=== PATIENT | male | born 1945 | race Caucasian/White ===

== ENCOUNTER 2016-12-16 16:14 | Observation (INO) | payer MEDICARE ==
[~2016-12-16] VITALS: Ht 185.4 cm; Wt 77.3 kg
[~2016-12-16 16:14] MED LIST: BETAPACE160 MG PO; DURAGESIC1 PATCH .1 TRANSDERM; HYDROCODON-ACE1 EAC7 PO; NEURONTIN 300300 MG PO; OMEPRAZOLE40 MG PO; UNKNOWN ANTIBIOTIC PO; XANAX1 MG PO; ZANAFLEX4 MG PO
[2016-12-16 16:51] LABS: BASOPHILS 0.2 % (0.0-2.0); EOSINOPHILS 0 % (0-7); HEMATOCRIT 45.8 % (42.0-54.0); HEMOGLOBIN 15.6 g/dL (13.5-17.5); IMMATURE GRANULOCYTES 0.2 % (0-5); LYMPHOCYTES 11.7 % (15-50); MCH 31.6 pg (26.0-34.0); MCHC 34.1 g/dL (31.0-37.0); MCV 92.9 fL (80.0-100.0); MONOCYTES 8.8 % (2-11); NEUTROPHILS 79.1 % (40-80); PLATELET COUNT 216 10x3/uL (130-400); RBC 4.93 10x6/uL (4.20-6.10); RDW 12.7 % (11.5-14.5); WBC 10.8 10x3/uL (4.8-10.8)
[2016-12-16 17:08] LABS: APTT 29.8 SECONDS (22.8-39.4); INR 1.26 (0.85-1.17); PROTIME 15.7 SECONDS (11.6-15.0)
[2016-12-16 17:26] LABS: ALBUMIN 4.7 g/dL (3.4-5.0); ANION GAP 30.1 mmol/L (8-16); BILIRUBIN - TOTAL 1.37 mg/dL (0.2-1.3); CALCIUM 9.9 mg/dL (8.5-10.1); CREATININE - SERUM 2.1 mg/dL (0.6-1.3); POTASSIUM - SERUM 4.1 mmol/L (3.5-5.1); PROTEIN - SERUM 8.1 g/dL (6.4-8.2)
[2016-12-16 20:43] LABS: UDS - AMPHET NEGATIVE QUAL (NEGATIVE); UDS - BARB NEGATIVE QUAL (NEGATIVE); UDS - BENZO POSITIVE QUAL (NEGATIVE); UDS - COCAINE NEGATIVE QUAL (NEGATIVE); UDS - METH NEGATIVE QUAL (NEGATIVE); UDS - OPIATE POSITIVE QUAL (NEGATIVE); UDS - PCP NEGATIVE QUAL (NEGATIVE); UDS - THC NEGATIVE QUAL (NEGATIVE)
[2016-12-16 21:58] LABS: APPEARANCE CLEAR (CLEAR); BILIRUBIN NEGATIVE (NEGATIVE); COLOR DK YELLOW (YELLOW); GLUCOSE NEGATIVE (NEGATIVE); KETONE MODERATE mg/dL (NEGATIVE); LEUKOCYTE ESTERASE NEGATIVE (NEGATIVE); NITRITE NEGATIVE (NEGATIVE); PROTEIN NEGATIVE (NEGATIVE); SPECIFIC GRAVITY 1.025 (1.005-1.020); UROBILINOGEN NORMAL (NORMAL)
--- NOTE | 2016-12-17 03:00 | NUR ---
REC'D PATIENT FROM ER STAFF. PATIENT IS ALERT AND ORIENTED X3. IS CONFUSED ON WHAT BROUGHT HIM HERE. DIAGNOSED WITH ALTERED MENTAL STATUS. HAD AN EPISODE OF SVTS DOWN IN THE ER AND ER NURSE SYED STATED THAT SHE GAVE HIM ADENOSINE. PATIENT HAS A TELMETRY MONITOR ON RIGHT NOW THAT WAS ORDERED. HAS A BED ALARM ON BED. HAS A HEMATOMA TO RIGHT PERIORBITAL, AND ABRASIONS ON HIS RIGHT HAND, KNEE AND SHOULDER. PATIENT ALSO HAS A PACEMAKER. DENIED NEEDS AT THIS TIME. INSTRUCTED ON HOW TO USE AND WHEN TO USE THE CALL LIGHT. PATIENT VERBALIZED UNDERSTANDING. BED LOW, LOCKED, CALL LIGHT IN REACH, BED ALARM ON.
[2016-12-17 05:05] VITALS: BP 125/75; Ht 185.4 cm; Wt 77.3 kg
--- NOTE | 2016-12-17 05:26 | NUR ---
ASSESSMENT PER ADMIT PACKET. PT REMAINS CONFUSED SPEECH RAMBLES. KENYA BED ALARM MAT ON. YELLOW BAND ON PT CLIMBS OUT OF BED FREQUENTLY.COMES OUT INTO HALLWAY LOOKING FOR BATHROOM. LOOKING FOR BATHROOM. ESCORTED TO BATHROOM.
--- NOTE | 2016-12-17 07:15 | NUR ---
REPORT RECEIVED FROM INTERLOCKING PAVEMENT INSTALLER NURSE. CALL LIGHT IN REACH.
[2016-12-17 08:41] VITALS: BP 136/89
--- NOTE | 2016-12-17 09:10 | NUR ---
ASSESSMENT COMPLETED. OFFERED SCDs BUT REFUSED. CALL LIGHT IN REACH. WILL CONTINUE WITH PLAN OF CARE.
--- NOTE | 2016-12-17 11:22 | NUR ---
BENJA SAWYER. US BEING DONE AT THIS TIME. CALL LIGHT IN REACH.
--- NOTE | 2016-12-17 12:05 | NUR ---
NO NEEDS VOICED AT THIS TIME. CALL LIGHT IN REACH. KENYA MAT ALARM ON.
[2016-12-17 12:57] VITALS: BP 145/93
--- NOTE | 2016-12-17 14:20 | NUR ---
HAS BEEN DISASSEMBLING KENYA MAT AND GETTING UP GOING IN OTHER PATIENTS' ROOMS MESSING WITH THEIR IV PUMPS. ASSISTED PATIENT BACK TO BED AND REORIENTED HIM.
[2016-12-17 15:27] LABS: ERYTHROCYTE SEDIMENTATION RATE 1 mm/hr (0-20)
--- NOTE | 2016-12-17 16:58 | NUR ---
18 GA TO LEFT AC WAS OUT WITH TIP INTACT. RESITED TO LEFT HAND WITH 22 GA X1 STICK. NS INITIATED @ 125 CC/HR. CALL LIGHT IN REACH.
--- NOTE | 2016-12-17 17:02 | NUR ---
Discharge Planning Comments: CM MET WITH PATIENT TO DISCUSS DISCHARGE PLANNING AND NEEDS. CM FOUND PATIENT WITH EAR PRESSED AGAINST INTERCOM ON WALL IN PATIENT'S ROOM. THE PATIENT STATED HE "WAS TALKING TO HIS SISTER IN [place]". PATIENT DISORIENTED TO PLACE AND PERSON. currently AWAITING PSYCH EVAL FROM [facility]. CM TO FOLLOW AND ASSIST NEEDED. Apricot Packer: Deb Quiroga
[2016-12-17 17:10] VITALS: BP 114/65
--- NOTE | 2016-12-17 17:25 | NUR ---
URINAL GIVEN TO PATIENT AND EXPLAINED TO HIM THE NEED FOR A URINE SAMPLE. VERBALIZED UNDERSTANDING.
--- NOTE | 2016-12-17 18:00 | NUR ---
PATIENT IS IN BED. SITTING UP IN BED. RESPIRATIONS ARE EVEN AND UNLABORED ON ROOM AIR. PATIENT IS EATING A SALAD. PATIENT DENIES NEEDS. BED ALARM ON. BED IN LOWEST POSITION, CALL LIGHT IN REACH.
--- NOTE | 2016-12-17 19:00 | NUR ---
NO CHANGES IN INIITIAL ASSESSMENT. CALL LIGHT IN REACH. WILL CONTINUE WITH PLAN OF CARE.
[2016-12-17 20:00] VITALS: BP 144/80
--- NOTE | 2016-12-17 20:00 | NUR ---
ASSESSMENT PER FLOWSHEET. CONFUSED TO SITUATION AND PLACE. IV PATENT LEFT HAND OF NS AT 125CC'S/HR SITE CLEAR. KENYA BED ALARM MAT ON BED AND ACTIVATED. ALARMS FREQUENTLY PT GETS OUT OF BED AND WANDERS INTO HALLWAY ESCORTED BACK TO ROOM AND TO BATHROOM.
--- NOTE | 2016-12-17 21:00 | NUR ---
MEDS GIVEN PER NOV. RESTING IN BED SR UP X2 CALL LIGHT WITHIN REACH.
--- NOTE | 2016-12-17 23:27 | NUR ---
IN BED EYES CLOSED RESPIRATIONS WITH EASE AND UNLABORED.
[2016-12-18] VITALS: BP 148/77
--- NOTE | 2016-12-18 01:00 | NUR ---
EYES CLOSED RESPIRAIONS WITH EASE AND UNLABORED.
--- NOTE | 2016-12-18 02:56 | NUR ---
RESTING QUIETLY DENIES NEEDS NO VOICED C/O
[2016-12-18 04:00] VITALS: BP 138/68
--- NOTE | 2016-12-18 05:46 | NUR ---
RESTING QUIETLY NO CHANGES IN ASSESSMENT.
--- NOTE | 2016-12-18 07:30 | NUR ---
REPORT RECEIVED FROM EYELET RIVETER NURSE. CALL LIGHT IN REACH.
[2016-12-18 09:09] VITALS: BP 156/100
--- NOTE | 2016-12-18 09:20 | NUR ---
ASSESSMENT COMPLETED. REFUSES SCDs. KENYA MAT ALARM ON. CALL LIGHT IN REACH. WILL CONTINUE WITH PLAN OF CARE.
--- NOTE | 2016-12-18 10:42 | NUR ---
PATIENT IN RIGHT LATERAL POSITION RESTING QUIETLY. RESPIRATIONS EVEN AND UNLABORED. SIDE RAILS UP X2. BED IN LOW POSITION. CALL LIGHT IN REACH.
--- NOTE | 2016-12-18 10:45 | NUR ---
DR. IBARRA HAS REVIEWED THIS PATIENT'S CHART AND HE DOES APPROVE FOR PT TO BE ADMITTED TO [facility] FOR FURTHER TREATMENT ONCE MEDICALLY STABLE.
--- NOTE | 2016-12-18 11:16 | NUR ---
BETAPACE PO. REQUESTING OXYCODONE BUT REFUSES TYLENOL. ONLY WANTS A NARCOTIC.
[2016-12-18 11:30] LABS: BASOPHILS 0.3 % (0.0-2.0); EOSINOPHILS 0.7 % (0-7); HEMATOCRIT 40.9 % (42.0-54.0); HEMOGLOBIN 13.7 g/dL (13.5-17.5); IMMATURE GRANULOCYTES 0.1 % (0-5); LYMPHOCYTES 16.3 % (15-50); MCH 31.5 pg (26.0-34.0); MCHC 33.5 g/dL (31.0-37.0); MEAN PLATELET VOLUME 9.9 fL (7.4-10.4); MONOCYTES 11.5 % (2-11); NEUTROPHILS 71.1 % (40-80); RBC 4.35 10x6/uL (4.20-6.10); RDW 12.6 % (11.5-14.5)
[2016-12-18 11:36] LABS: PLATELET COUNT 147 10x3/uL (130-400)
[2016-12-18 11:37] LABS: ALKALINE PHOSPHATASE 65 U/L (46-116); ALT (SGPT) 29 U/L (10-68); BILIRUBIN - TOTAL 0.95 mg/dL (0.2-1.3); CALCIUM 8.3 mg/dL (8.5-10.1); CHLORIDE - SERUM 109 mmol/L (98-107); GLUCOSE 129 mg/dL (74-106); PROTEIN - SERUM 6.4 g/dL (6.4-8.2); SODIUM 146 mmol/L (136-145)
[2016-12-18 11:40] LABS: ALBUMIN 3.3 g/dL (3.4-5.0); CALC OSMOLALITY 294 mosm/kg (275-300); CARBON DIOXIDE 29.8 mmol/L (21.0-32.0); POTASSIUM - SERUM 3.4 mmol/L (3.5-5.1); UREA NITROGEN 17 mg/dL (7-18); eGFR NON AFRICAN AMERICAN 78 mL/min (90-120)
[2016-12-18 13:06] VITALS: BP 141/87
--- NOTE | 2016-12-18 13:53 | NUR ---
IV OUT WITH TIP INTACT.
--- NOTE | 2016-12-18 15:20 | NUR ---
RESTING WITH EYES CLOSED. RESP EVEN AND UNLABORED. CALL LIGHT IN REACH.
[2016-12-18 16:32] VITALS: BP 151/101
--- NOTE | 2016-12-18 17:58 | NUR ---
SITTING UP IN BED EATING DINNER. NO NEEDS VOICED AT THIS TIME. CALL LIGHT IN REACH.
[2016-12-18 18:09] LABS: SPE - A/G RATIO 1.2 (0.7-1.7); SPE - ALBUMIN 3.9 g/dL (2.9-4.4); SPE - ALPHA-1 GLOBULIN 0.2 g/dL (0.0-0.4); SPE - ALPHA-2 GLOBULIN 0.7 g/dL (0.4-1.0); SPE - BETA GLOBULIN 0.9 g/dL (0.7-1.3); SPE - GAMMA GLOBULIN 1.5 g/dL (0.4-1.8); SPE - M-SPIKE Not Observed g/dL (Not Observed); SPE - TOTAL PROTEIN 7.2 g/dL (6.0-8.5)
--- NOTE | 2016-12-24 14:38 | EC ---
PATIENT:LANEY SCHMITT DATE OF SERVICE: 12/16/16 SEX: M MEDICAL RECORD: [id number] DATE OF : 41 LOCATION:[facility] AGE OF PATIENT: 71 ADMISSION DATE: 12/18/16 REFERRING PHYSICIAN: INTERPRETING PHYSICIAN: LEESA ARNETT MD ECHOCARDIOGRAM REPORT ECHO CHARGES 4 ECHO COMPLETE CLINICAL DIAGNOSIS: SVT ECHOCARDIOGRAPHIC MEASUREMENTS (adult normal given) AC root (d.<3.7cm) 3.9 LV Septum d (<1.2 cm> 1.4 Valve Excursion 1.9 LV Septum (systole) 1.5 Left Atria (s.<4.0cm> 3.8 LVPW d(<1.2cm) 1.5 RV (d.<2.3cm) 2.9 LVPW (sytole) 1.6 LV diastole(<5.6CM) 4.4 MV E-F(>70mm/sec) LV systole 2.7 LVOT Diameter 2.0 MV exc.(>10mm) 1.8 Est.ejection fraction (50-75%) Pericardial Effusion N DOPPLER: LVIT A 72.0 E 90.0 LA RVSP 35 LVOT 98 AOP1/2T Asc. Ao 110 RVOT RA PA AV Gradient Peak 4.86 AV Mean 2.20 AV Area 2.4 MV Gradient Peak 4.16 MV Mean 1.61 MV Area COMMENTS: Electro Mechanical Designer: Jered MANTILLA Grocery Clerk:Chaitanya Arnett TAPE# PACS DATE OF SERVICE: 12/17/2016 Echocardiogram FINDINGS: 1. Left ventricular chamber size is within normal limits. Left ventricular systolic function is normal. Overall ejection fraction estimated at 60%. 2. Left atrium, right atrium and right ventricular chamber sizes are within normal limits. 3. Valvular structures have normal structure and motion. ECHOCARDIOGRAM REPORT [id number] LANEY SCHMITT 4. Doppler interrogation reveals mild mitral regurgitation, mild tricuspid regurgitation, no other valvular insufficiency or stenosis and pulmonary systolic pressure is normal estimated at 35 mmHg. 5. No evidence of pericardial effusion or left ventricular thrombus. TRANSINT:[id number] Voice Confirmation ID: [id number] DOCUMENT ID: [id number] LEESA ARNETT MD at 4951 CC: [id number] DICTATION DATE: 12/17/[address] OF APPEALS JUDGE: 12/17/16 1438 DIS IN 12/18/[address] [place] [id number] [facility] JA[facility] [place], [facility]
== END 2016-12-18 22:12 | disposition short-term general hospital (02) ==
LOC: D.ER 16:14 → D.MS 23:44 → D.SDCHOLD 12-17 13:34 → D.PSYCH 12-18 20:34 → D.MS 12-18 20:34 → OBSVTIME 12-18 22:07 → D.MS 12-18 22:07
PROVIDERS: Emergency Medicine; Internal Medicine Hematology; Internal Medicine Nephrology; Physician Assistant Medical; ADMIT Legal Medicine
DX: N17.9 Acute kidney failure, unspecified (principal); I47.1 Supraventricular tachycardia; R55 Syncope and collapse; I48.91 Unspecified atrial fibrillation; R41.82 Altered mental status, unspecified; Z95.0 Presence of cardiac pacemaker; F32.9 Major depressive disorder, single episode, unspecified

== ENCOUNTER 2016-12-18 20:49 | Inpatient (IN) | payer MEDICARE ==
--- NOTE | 2016-12-19 00:39 | NUR ---
Recieved patient from Med II via wheelchair, alert and oriented X 3, patient had been living alone at home, confused and throwing belonging into the parking lot, up with assist, patient has pacemaker, medications entered labs ordered, physician called, full code, will continue to monitor.
[2016-12-19 05:25] VITALS: BP 142/99; Wt 77.3 kg
[2016-12-19 06:45] LABS: BASOPHILS 0.1 % (0.0-2.0); EOSINOPHILS 1.3 % (0-7); HEMATOCRIT 40.8 % (42.0-54.0); HEMOGLOBIN 13.6 g/dL (13.5-17.5); IMMATURE GRANULOCYTES 0.1 % (0-5); LYMPHOCYTES 28.7 % (15-50); MCH 31.1 pg (26.0-34.0); MCHC 33.3 g/dL (31.0-37.0); MCV 93.4 fL (80.0-100.0); MONOCYTES 11.6 % (2-11); NEUTROPHILS 58.2 % (40-80); PLATELET COUNT 133 10x3/uL (130-400); RBC 4.37 10x6/uL (4.20-6.10); RDW 12.4 % (11.5-14.5)
[2016-12-19 06:55] LABS: HEMOGLOBIN A1C 5.5 % (4.8-6.0)
[2016-12-19 07:17] LABS: ALKALINE PHOSPHATASE 67 U/L (46-116); ALT (SGPT) 28 U/L (10-68); CALC OSMOLALITY 283 mosm/kg (275-300); CALCIUM 8.4 mg/dL (8.5-10.1); CARBON DIOXIDE 29.5 mmol/L (21.0-32.0); CHLORIDE - SERUM 106 mmol/L (98-107); CHOL - HDL RATIO 3.8 ratio (2.3-4.9); CHOLESTEROL, TOTAL 130 mg/dL (0-200); CREATININE - SERUM 0.9 mg/dL (0.6-1.3); GLUCOSE 97 mg/dL (74-106); HDL CHOLESTEROL 34 mg/dL (32-96); LDL CHOLESTEROL 85 mg/dL (0-100); LDL-HDL RATIO 2.5 ratio (1.5-3.5); POTASSIUM - SERUM 3.1 mmol/L (3.5-5.1); PROTEIN - SERUM 5.9 g/dL (6.4-8.2); SODIUM 142 mmol/L (136-145); THYROID STIMULATING HORMONE 1.48 uIU/mL (0.36-3.74); TRIGLYCERIDE 58 mg/dL (30-200); UREA NITROGEN 16 mg/dL (7-18); eGFR NON AFRICAN AMERICAN 88 mL/min (90-120)
[2016-12-19 08:30] VITALS: BP 149/102
--- NOTE | 2016-12-19 11:27 | NUR ---
Pt sitting in recliner speaking with Dr. Marmolejo. Pt quiet, cooperative with staff, however staff reports pt grabbing food from other patients tray at breakfast. Dr. Soliman also visited with patient this am. Medication given as ordered. Reorientation, redirection given as needed. Pt redirects well. Will continue to monitor and continue plan of care.
[2016-12-19 20:00] VITALS: BP 149/97
[2016-12-19 20:27] VITALS: BP 149/97
--- NOTE | 2016-12-20 03:57 | NUR ---
B) Recieved patient sitting in the day room listening to music, alert and oriented X 3, calm and cooperative, social with other patients, intrusive at times, I) Administered perscribed medications, redirected as needed, R) Medication compliant, resting now quietly, P) Continue plan of care.
[2016-12-20 05:16] LABS: RAPID PLASMA REAGIN Non Reactive (Non Reactive)
[2016-12-20 06:09] LABS: CALCIUM 8.4 mg/dL (8.5-10.1); CARBON DIOXIDE 30.9 mmol/L (21.0-32.0); CHLORIDE - SERUM 105 mmol/L (98-107); GLUCOSE 103 mg/dL (74-106); SODIUM 141 mmol/L (136-145); eGFR NON AFRICAN AMERICAN 78 mL/min (90-120)
[2016-12-20 06:10] LABS: CALC OSMOLALITY 283 mosm/kg (275-300); POTASSIUM - SERUM 3.8 mmol/L (3.5-5.1); UREA NITROGEN 22 mg/dL (7-18)
[2016-12-20 06:15] LABS: VITAMIN D 25 HYDROXY 24.1 ng/mL (30.0-100.0)
[2016-12-20 07:23] LABS: FOLATE (FOLIC ACID) - SERUM 14.2 ng/mL (>3.0)
[2016-12-20 09:40] VITALS: BP 134/98
--- NOTE | 2016-12-20 10:00 | NUR ---
B) PATIENT IS AWAKE AND ALERT, HE DOES HAVE A BIZARRE PERSONA, HE DENIES DEPRESSION, BUT AT TIMES HAS A FLAT TO BLUNTED AFFECT AND THEN AT OTHER TIMES HE IS REACTIVE. PATIENT AMBULATES INDEPENDENTLY. I) PROVIDE PRESCRIBED MEDS. R) PATIENT IS COMPLIANT WITH MEDS. P) CONTINUE PLAN OF CARE.
[2016-12-20] MEDS ORDERED: LEXAPRO10 MG PO (12:30)
[2016-12-20] MEDS ORDERED: DESERYL100 MG PO (12:31)
[2016-12-20] MEDS ORDERED: ATIVAN1 MG PO (12:31)
--- NOTE | 2016-12-20 13:30 | NUR ---
DR. IBARRA D/Unique'D PATIENT, CALLED ER TO GET TAXI VOUCHER SO PATIENT MAY RECEIVE A RIDE HOME.
--- NOTE | 2016-12-20 13:51 | NUR ---
SW SET UP REFERRAL TO [facility] FOR OUTPATIENT THERAPY.
--- NOTE | 2016-12-20 14:03 | NUR ---
PATIENT D/C'D FROM [facility] MEDS CALLED TO [facility], ORDERS AND MEDS FAXED TO DR. RAHMAN. PROVIDED PATIENT A COPY OF ALL MEDICATIONS HE WAS RECEIVING HERE, EXPLAINED TO HIM THAT HE HAS BEEN REFERRED TO [facility], WENT OVER MEDICATIONS WITH HIM AND TOLD HIM ALL ORDERS AND MEDICATION LIST WAS FAXED TO DR. RAHMAN. PATIENT SIGNED D/C PAPERS, ALL BELONGINGS ACCOUNTED FOR THAT HE CAME TO THIS UNIT CARRYING.
--- NOTE | 2016-12-20 14:10 | NUR ---
PATIENT D/C'D OFF THE UNIT WITH CHILDREN TEACHER. TAXI VOUCHER IN HAND.
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
== END 2016-12-20 14:14 | disposition home or self-care (01) | DRG 885 ==
LOC: D.PSYCH 20:49
PROVIDERS: Family Medicine; ADMIT Psychiatry & Neurology Psychiatry
DX: F33.9 Major depressive disorder, recurrent, unspecified (principal); F60.1 Schizoid personality disorder; G89.4 Chronic pain syndrome; E87.6 Hypokalemia; K59.00 Constipation, unspecified; I48.91 Unspecified atrial fibrillation; K27.9 Peptic ulcer, site unspecified, unspecified as acute or chronic, without hemorrhage or perforation; I10 Essential (primary) hypertension; G47.00 Insomnia, unspecified; Z95.0 Presence of cardiac pacemaker; H26.9 Unspecified cataract

== ENCOUNTER 2016-12-24 16:28 | Emergency (ER) | payer MEDICARE ==
[2016-12-19 05:25] VITALS: BMI 22.4
[~2016-12-24 16:28] MED LIST changes: +ATIVAN1 MG PO; +DESERYL100 MG PO; +LEXAPRO10 MG PO
[2016-12-24 18:02] LABS: BASOPHILS 0.3 % (0.0-2.0); EOSINOPHILS 1.6 % (0-7); HEMOGLOBIN 13.9 g/dL (13.5-17.5); IMMATURE GRANULOCYTES 0.1 % (0-5); MCH 31.4 pg (26.0-34.0); MCHC 33.1 g/dL (31.0-37.0); MCV 94.8 fL (80.0-100.0); MEAN PLATELET VOLUME 9.4 fL (7.4-10.4); MONOCYTES 11.9 % (2-11); NEUTROPHILS 67.1 % (40-80); RBC 4.43 10x6/uL (4.20-6.10); RDW 12.4 % (11.5-14.5); WBC 7.4 10x3/uL (4.8-10.8)
[2016-12-24 18:04] LABS: PLATELET COUNT 164 10x3/uL (130-400)
[2016-12-24 18:22] LABS: ALBUMIN 3.6 g/dL (3.4-5.0); ALKALINE PHOSPHATASE 72 U/L (46-116); ALT (SGPT) 34 U/L (10-68); BILIRUBIN - TOTAL 0.57 mg/dL (0.2-1.3); CALC OSMOLALITY 280 mosm/kg (275-300); CALCIUM 8.9 mg/dL (8.5-10.1); CARBON DIOXIDE 32.8 mmol/L (21.0-32.0); CHLORIDE - SERUM 104 mmol/L (98-107); GLUCOSE 93 mg/dL (74-106); POTASSIUM - SERUM 4.4 mmol/L (3.5-5.1); PROTEIN - SERUM 7.2 g/dL (6.4-8.2); SODIUM 140 mmol/L (136-145); UREA NITROGEN 18 mg/dL (7-18); eGFR NON AFRICAN AMERICAN 78 mL/min (90-120)
[2016-12-24 20:15] LABS: UDS - AMPHET NEGATIVE QUAL (NEGATIVE); UDS - BARB NEGATIVE QUAL (NEGATIVE); UDS - BENZO POSITIVE QUAL (NEGATIVE); UDS - COCAINE NEGATIVE QUAL (NEGATIVE); UDS - METH NEGATIVE QUAL (NEGATIVE); UDS - OPIATE NEGATIVE QUAL (NEGATIVE); UDS - PCP NEGATIVE QUAL (NEGATIVE); UDS - THC NEGATIVE QUAL (NEGATIVE)
[2016-12-25 00:20] LABS: APPEARANCE CLEAR (CLEAR); BILIRUBIN NEGATIVE (NEGATIVE); COLOR YELLOW (YELLOW); GLUCOSE NEGATIVE (NEGATIVE); KETONE NEGATIVE (NEGATIVE); LEUKOCYTE ESTERASE NEGATIVE (NEGATIVE); NITRITE NEGATIVE (NEGATIVE); PROTEIN NEGATIVE (NEGATIVE); SPECIFIC GRAVITY 1.005 (1.005-1.020); UROBILINOGEN NORMAL (NORMAL)
== END 2016-12-25 01:23 | disposition home or self-care (01) ==
LOC: D.ER 16:28
PROVIDERS: Emergency Medicine; Nurse Practitioner Family
DX: M54.9 Dorsalgia, unspecified (principal); F32.9 Major depressive disorder, single episode, unspecified; K21.9 Gastro-esophageal reflux disease without esophagitis; Z95.0 Presence of cardiac pacemaker

== ENCOUNTER 2017-01-09 04:05 | Emergency (ER) | payer MEDICARE, MEDICAID ==
[2016-12-19 05:25] VITALS: BMI 22.4
[2017-01-09 04:59] LABS: BASOPHILS 0.4 % (0.0-2.0); EOSINOPHILS 1.5 % (0-7); HEMATOCRIT 40.7 % (42.0-54.0); HEMOGLOBIN 13.5 g/dL (13.5-17.5); IMMATURE GRANULOCYTES 0.2 % (0-5); MCH 31.5 pg (26.0-34.0); MCHC 33.2 g/dL (31.0-37.0); MCV 94.9 fL (80.0-100.0); MEAN PLATELET VOLUME 9.1 fL (7.4-10.4); MONOCYTES 12.6 % (2-11); NEUTROPHILS 55.3 % (40-80); PLATELET COUNT 168 10x3/uL (130-400); RBC 4.29 10x6/uL (4.20-6.10); RDW 12.9 % (11.5-14.5); WBC 5.2 10x3/uL (4.8-10.8)
[2017-01-09 05:08] LABS: ALBUMIN 3.1 g/dL (3.4-5.0); ALKALINE PHOSPHATASE 101 U/L (46-116); ALT (SGPT) 38 U/L (10-68); BILIRUBIN - TOTAL 0.37 mg/dL (0.2-1.3); CALC OSMOLALITY 283 mosm/kg (275-300); CALCIUM 8.3 mg/dL (8.5-10.1); CARBON DIOXIDE 28.2 mmol/L (21.0-32.0); CHLORIDE - SERUM 106 mmol/L (98-107); GLUCOSE 95 mg/dL (74-106); POTASSIUM - SERUM 3.7 mmol/L (3.5-5.1); PROTEIN - SERUM 6.6 g/dL (6.4-8.2); SODIUM 142 mmol/L (136-145); UREA NITROGEN 15 mg/dL (7-18); eGFR NON AFRICAN AMERICAN 78 mL/min (90-120)
[2017-01-09 05:18] LABS: PRO BNP 1425 pg/mL (0-125); THYROID STIMULATING HORMONE 3.25 uIU/mL (0.36-3.74); TROPONIN-I 0.018 ng/mL (0.000-0.060)
== END 2017-01-09 06:55 | disposition home or self-care (01) ==
LOC: D.ER 04:05
PROVIDERS: Family Medicine
DX: I48.2 Chronic atrial fibrillation (principal); Z95.0 Presence of cardiac pacemaker

== ENCOUNTER 2019-10-27 12:02 | Emergency (ER) | payer OTHER ==
[~2019-10-27] VITALS: Ht 182.9 cm; Wt 90.9 kg
[2019-10-27 12:08] VITALS: BP 149/86; Ht 182.9 cm; Wt 90.9 kg
== END 2019-10-27 14:40 | disposition home or self-care (01) ==
LOC: D.ER 12:02
DX: M54.2 Cervicalgia (principal); M54.9 Dorsalgia, unspecified; G89.29 Other chronic pain; V89.2XXA Person injured in unspecified motor-vehicle accident, traffic, initial encounter; Y93.9 Activity, unspecified; Y92.9 Unspecified place or not applicable; I10 Essential (primary) hypertension; I48.91 Unspecified atrial fibrillation; I20.9 Angina pectoris, unspecified; Z95.0 Presence of cardiac pacemaker